=== PATIENT | female | born 1990 | race African-American/Black ===

== ENCOUNTER 2020-07-23 13:04 | Emergency (ER) | payer SELFPAY ==
[2020-07-23 20:53] LABS: SARS-CoV-2 PCR by NAA Not Detected (NotDetected)
== END 2020-07-23 13:29 | disposition home or self-care (01) ==
LOC: ERS 13:04
DX: J02.9 Acute pharyngitis, unspecified (principal); R09.89 Other specified symptoms and signs involving the circulatory and respiratory systems; R11.0 Nausea; Z20.822 Contact with and (suspected) exposure to COVID-19; J45.909 Unspecified asthma, uncomplicated; F17.210 Nicotine dependence, cigarettes, uncomplicated
CPT/HCPCS: 87635; 99283; U0003; U0005